=== PATIENT | male | born 1950 | race American Indian/Alaskan Native ===

== ENCOUNTER 2021-07-11 15:18 | Emergency (ER) | payer MEDICARE ==
[2021-07-11] MEDS ORDERED: ETOMIDATE 20 MG/10 ML INJ IV ONE (15:23)
[2021-07-11] MEDS ORDERED: ROCURONIUM 50 MG/5 ML INJ IV ONE (15:23)
[2021-07-11] MEDS ORDERED: LIDOCAINE PF 100 MG/5 ML (CARDIAC SYRINGE) IV ONE (15:23)
[2021-07-11] MEDS ORDERED: LIP THERAPY VASELINE TP PRN (15:51)
[2021-07-11] MEDS ORDERED: MINERAL OIL/PETROLATUM, WHITE OPHTH OINT 3.5 GM OU PRN (15:51)
[2021-07-11] MEDS ORDERED: THIAMINE 100 MG, FOLIC ACID 1 MG, MULTIPLE VITAMIN INJ, ADULT 10 ML in SODIUM CHLORIDE ... IV ONE (15:52)
--- NOTE | 2021-07-11 15:53 | Emergency Department Report ---
ED Altered Mental Status HPI - General Stated Complaint: AMS Time Seen by Provider: 07/11/21 15:32 Source: family, EMS, old records reviewed (not available) Mode of arrival: Stretcher Limitations: Altered Mental Status, Physical Limitation - History of Present Illness Initial Comments: 70-year-old male with a past medical history of CHF, hypertension, and atrial fibrillation presents to the hospital with altered mental status. History obtained from EMS who states that reported that patient has been drinking and smoking all day (unsure what substance he was smoking). He went to the bathroom and then he was later found in the hallway in front of the door visiting the home. Upon EMS arrival they report he had agonal respirations with period of 2 to 3 minutes of apnea. EMs Initially tried to intubate in the field however, he had a gag reflex therefore intubation attempts aborted. Nasopharyngeal tube was placed and patient was supported with [id number] ventilations during transport to the hospital. Patient arrives with spontaneous respirations and satting 100% with bag valve mask oxygenation. His Accu-Chek was 171 upon arrival and he received Narcan in route without improvement in mental status. Pt prepped for intubation due to dimished mental status Son clarified the history. He states that he received a call from his mother at approximately 1 PM that the patient h was found down on the kitchen floor. He was responsive at that time. She assisted him up with a he went to the bathroom. He then fell a second time and was unresponsive. Son instructed his mother to call EMS at that time. Son denies that patient is an alcoholic and typically smokes Black and milds and does not abuse drugs. He is currently taking Eliquis for atrial fibrillation - Related Data Allergies Allergy/AdvReac Type Severity Reaction Status Date / Time No Known Allergies Allergy Unverified 07/11/21 15:55 ED Review of Systems ROS: Stated complaint: AMS Other details as noted in HPI Comment: All other systems reviewed and negative ED Physical Exam - General Limitations: Altered Mental Status, Physical Limitation - Other Other exam information: General: Unresponsive Head: scalp hematoma eyes: 3mm unresponsive, equal ENT: Nasopharyngeal airway Neck: Normal appearance Chest: Clear to auscultation bilaterally CV: Tachycardic irregular rhythm Abdomen: Soft, normal bowel sounds, nondistended Extremity: Normal inspection Neuro: GCS equals 3 Psych: Unresponsive Skin: Warm to touch ED Course Vital Signs 07/11/21 07/11/21 07/11/21 15:35 16:00 16:57 Pulse Rate 135 H 136 H Blood Pressure 142/113 167/121 O2 Sat by Pulse 100 100 Oximetry 07/11/21 17:10 Pulse Rate 136 H Blood Pressure 167/121 O2 Sat by Pulse 99 Oximetry - Reevaluation(s) Reevaluation #1: 07/11/21 17:57 labs were requested stat, still awaiting results - Consultations Consultation #1: 07/11/21 15:40 case d/w Dr Quezada cardiac interventionalists on-call. No ST elevation [place] or indication for emergent Stone Layout Marker intervention at this time 07/11/21 16:40 Case discussed with on-call neurosurgeon Dr. Vargas. Requests mannitol 1 mg/kg bolus and advises to provided a reversal agent for Eliquis. 17:12 Case d/w Zeb Odell, confirms that pt is actually on Pradaxa. Informed of plan to transfer to [facility] 17:15 Case discussed with [facility] trauma attending Dr. Rodriguez. Agrees to discontinue Kcentra since patient is on Pradaxa. Recommends TXA and Praxbind is not available. Also recommends to cancel mannitol and provide hypertonic saline instead over 1 hour. 07/11/21 17:21 speaking with pharmacist. Informed to cancel mannitol and provide hypertonic saline instead. Also confirmed that we do have TXA and we do not have Praxbind available - Intubation Time Out Performed: Yes Sedative: Etomidate Mg Given: 20 (pretreated with Lidocaine 100mg) Paralytic: Rocuronium Mg Given: 100 Laryngoscope: Edgar Size: 4 Assist Device Used: fiberoptic device ET Tube Size: 7.5 Tube Secured Depth (cm): 22 Tube Secured Location: lips Tube Placement Confirmation: visualized tube passing t, equal breath sounds bilat, no breath sounds over epi, confirmation by capnometr Patient Tolerated Procedure: well, no complications Intubation Complications: none - Lab Data Result diagrams: 07/11/21 15:54 07/11/21 15:33 Lab Results 07/11/21 07/11/21 07/11/21 Range/Units 15:33 15:45 15:54 WBC 13.4 H (4.5-11.0) K/mm3 RBC 5.41 H (3.65-5.03) M/mm3 Hgb 16.1 H (11.8-15.2) gm/dl Hct 49.3 H (35.5-45.6) % MCV 91 (84-94) fl MCH 30 (28-32) pg MCHC 33 (32-34) % RDW 15.5 H (13.2-15.2) % Plt Count 178 (140-440) K/mm3 Lymph % (Auto) Agricultural Crop Farm Manager Holmes % (Auto) Agricultural Crop Farm Manager Eos % (Auto) Agricultural Crop Farm Manager Baso % (Auto) Agricultural Crop Farm Manager Lymph # (Auto) Agricultural Crop Farm Manager Holmes # (Auto) Agricultural Crop Farm Manager Eos # (Auto) Agricultural Crop Farm Manager Baso # (Auto) Agricultural Crop Farm Manager Seg Neutrophils % Agricultural Crop Farm Manager Seg Neutrophils # Agricultural Crop Farm Manager PT (12.2-14.9) Sec. INR (0.87-1.13) APTT (24.2-36.6) Sec. ABG pH 7.444 (7.350-7.450) pH Units ABG pCO2 32.2 mm Hg ABG pO2 69.0 L (80.0-90.0) mm Hg ABG HCO3 21.5 (20.0-26.0) mmol/L ABG O2 Saturation 95.5 (95.0-99.0) % ABG Base Excess -1.4 (-2.0-3.0) mmol/L ABG Hemoglobin 16.4 (14.0-18.0) gm/dl ABG Carboxyhemoglobin 1.3 (0.0-5.0) % ABG Methemoglobin 0.6 (0.0-1.5) % Oxyhemoglobin 93.7 L (95.0-99.0) % FiO2 30 % Sodium 135 L (137-145) mmol/L Potassium 4.8 (3.6-5.0) mmol/L Chloride 97.0 L (98-107) mmol/L Carbon Dioxide 18 L (22-30) mmol/L Anion Gap 25 mmol/L BUN 16 (9-20) mg/dL Creatinine 1.3 (0.8-1.3) mg/dL Estimated GFR > 60 ml/min BUN/Creatinine Ratio 12 % Glucose 174 H (75-100) mg/dL Lactic Acid (0.7-2.0) mmol/L Calcium 9.9 (8.4-10.2) mg/dL Magnesium 2.00 (1.7-2.3) mg/dL Total Bilirubin 1.30 H (0.1-1.2) mg/dL AST 53 H (5-40) units/L ALT 23 (7-56) units/L Alkaline Phosphatase 84 (35-129) units/L Ammonia (25-60) umol/L Total Creatine Kinase 122 (55-170) units/L CK-MB (CK-2) 2.0 (0.0-4.0) ng/mL CK-MB (CK-2) Rel Index 1.6 (0-4) Troponin T < 0.010 (0.00-0.029) ng/mL NT-Pro-B Natriuret Pep 2204 H (0-900) pg/mL Total Protein 7.4 (6.3-8.2) g/dL Albumin 4.5 (3.9-5) g/dL Albumin/Globulin Ratio 1.6 % TSH (0.270-4.200) mlU/mL Free T4 (0.76-1.46) ng/dL Salicylates (2.8-20.0) mg/dL Acetaminophen (10.0-30.0) ug/mL Plasma/Serum Alcohol (0-0.07) % Blood Type Antibody Screen 07/11/21 07/11/21 07/11/21 Range/Units 15:54 15:54 15:54 WBC (4.5-11.0) K/mm3 RBC (3.65-5.03) M/mm3 Hgb (11.8-15.2) gm/dl Hct (35.5-45.6) % MCV (84-94) fl MCH (28-32) pg MCHC (32-34) % RDW (13.2-15.2) % Plt Count (140-440) K/mm3 Lymph % (Auto) Holmes % (Auto) Eos % (Auto) Baso % (Auto) Lymph # (Auto) Holmes # (Auto) Eos # (Auto) Baso # (Auto) Seg Neutrophils % Seg Neutrophils # PT 16.9 H (12.2-14.9) Sec. INR 1.23 H (0.87-1.13) APTT 36.4 (24.2-36.6) Sec. ABG pH (7.350-7.450) pH Units ABG pCO2 mm Hg ABG pO2 (80.0-90.0) mm Hg ABG HCO3 (20.0-26.0) mmol/L ABG O2 Saturation (95.0-99.0) % ABG Base Excess (-2.0-3.0) mmol/L ABG Hemoglobin (14.0-18.0) gm/dl ABG Carboxyhemoglobin (0.0-5.0) % ABG Methemoglobin (0.0-1.5) % Oxyhemoglobin (95.0-99.0) % FiO2 % Sodium (137-145) mmol/L Potassium (3.6-5.0) mmol/L Chloride (98-107) mmol/L Carbon Dioxide (22-30) mmol/L Anion Gap mmol/L BUN (9-20) mg/dL Creatinine (0.8-1.3) mg/dL Estimated GFR ml/min BUN/Creatinine Ratio % Glucose (75-100) mg/dL Lactic Acid (0.7-2.0) mmol/L Calcium (8.4-10.2) mg/dL Magnesium (1.7-2.3) mg/dL Total Bilirubin (0.1-1.2) mg/dL AST (5-40) units/L ALT (7-56) units/L Alkaline Phosphatase (35-129) units/L Ammonia (25-60) umol/L Total Creatine Kinase (55-170) units/L CK-MB (CK-2) (0.0-4.0) ng/mL CK-MB (CK-2) Rel Index (0-4) Troponin T (0.00-0.029) ng/mL NT-Pro-B Natriuret Pep (0-900) pg/mL Total Protein (6.3-8.2) g/dL Albumin (3.9-5) g/dL Albumin/Globulin Ratio % TSH 7.750 H (0.270-4.200) mlU/mL Free T4 2.05 H (0.76-1.46) ng/dL Salicylates (2.8-20.0) mg/dL Acetaminophen (10.0-30.0) ug/mL Plasma/Serum Alcohol (0-0.07) % Blood Type A POSITIVE Antibody Screen Negative 07/11/21 07/11/21 07/11/21 Range/Units 17:35 17:35 17:35 WBC (4.5-11.0) K/mm3 RBC (3.65-5.03) M/mm3 Hgb (11.8-15.2) gm/dl Hct (35.5-45.6) % MCV (84-94) fl MCH (28-32) pg MCHC (32-34) % RDW (13.2-15.2) % Plt Count (140-440) K/mm3 Lymph % (Auto) Holmes % (Auto) Eos % (Auto) Baso % (Auto) Lymph # (Auto) Holmes # (Auto) Eos # (Auto) Baso # (Auto) Seg Neutrophils % Seg Neutrophils # PT (12.2-14.9) Sec. INR (0.87-1.13) APTT (24.2-36.6) Sec. ABG pH (7.350-7.450) pH Units ABG pCO2 mm Hg ABG pO2 (80.0-90.0) mm Hg ABG HCO3 (20.0-26.0) mmol/L ABG O2 Saturation (95.0-99.0) % ABG Base Excess (-2.0-3.0) mmol/L ABG Hemoglobin (14.0-18.0) gm/dl ABG Carboxyhemoglobin (0.0-5.0) % ABG Methemoglobin (0.0-1.5) % Oxyhemoglobin (95.0-99.0) % FiO2 % Sodium (137-145) mmol/L Potassium (3.6-5.0) mmol/L Chloride (98-107) mmol/L Carbon Dioxide (22-30) mmol/L Anion Gap mmol/L BUN (9-20) mg/dL Creatinine (0.8-1.3) mg/dL Estimated GFR ml/min BUN/Creatinine Ratio % Glucose (75-100) mg/dL Lactic Acid (0.7-2.0) mmol/L Calcium (8.4-10.2) mg/dL Magnesium (1.7-2.3) mg/dL Total Bilirubin (0.1-1.2) mg/dL AST (5-40) units/L ALT (7-56) units/L Alkaline Phosphatase (35-129) units/L Ammonia 41.0 (25-60) umol/L Total Creatine Kinase (55-170) units/L CK-MB (CK-2) (0.0-4.0) ng/mL CK-MB (CK-2) Rel Index (0-4) Troponin T (0.00-0.029) ng/mL NT-Pro-B Natriuret Pep (0-900) pg/mL Total Protein (6.3-8.2) g/dL Albumin (3.9-5) g/dL Albumin/Globulin Ratio % TSH (0.270-4.200) mlU/mL Free T4 (0.76-1.46) ng/dL Salicylates < 0.3 L (2.8-20.0) mg/dL Acetaminophen < 5.0 L (10.0-30.0) ug/mL Plasma/Serum Alcohol (0-0.07) % Blood Type Antibody Screen 07/11/21 07/11/21 Range/Units 17:35 Unknown WBC (4.5-11.0) K/mm3 RBC (3.65-5.03) M/mm3 Hgb (11.8-15.2) gm/dl Hct (35.5-45.6) % MCV (84-94) fl MCH (28-32) pg MCHC (32-34) % RDW (13.2-15.2) % Plt Count (140-440) K/mm3 Lymph % (Auto) Holmes % (Auto) Eos % (Auto) Baso % (Auto) Lymph # (Auto) Holmes # (Auto) Eos # (Auto) Baso # (Auto) Seg Neutrophils % Seg Neutrophils # PT (12.2-14.9) Sec. INR (0.87-1.13) APTT (24.2-36.6) Sec. ABG pH (7.350-7.450) pH Units ABG pCO2 mm Hg ABG pO2 (80.0-90.0) mm Hg ABG HCO3 (20.0-26.0) mmol/L ABG O2 Saturation (95.0-99.0) % ABG Base Excess (-2.0-3.0) mmol/L ABG Hemoglobin (14.0-18.0) gm/dl ABG Carboxyhemoglobin (0.0-5.0) % ABG Methemoglobin (0.0-1.5) % Oxyhemoglobin (95.0-99.0) % FiO2 % Sodium (137-145) mmol/L Potassium (3.6-5.0) mmol/L Chloride (98-107) mmol/L Carbon Dioxide (22-30) mmol/L Anion Gap mmol/L BUN (9-20) mg/dL Creatinine (0.8-1.3) mg/dL Estimated GFR ml/min BUN/Creatinine Ratio % Glucose (75-100) mg/dL Lactic Acid 3.40 H* (0.7-2.0) mmol/L Calcium (8.4-10.2) mg/dL Magnesium (1.7-2.3) mg/dL Total Bilirubin (0.1-1.2) mg/dL AST (5-40) units/L ALT (7-56) units/L Alkaline Phosphatase (35-129) units/L Ammonia (25-60) umol/L Total Creatine Kinase (55-170) units/L CK-MB (CK-2) (0.0-4.0) ng/mL CK-MB (CK-2) Rel Index (0-4) Troponin T (0.00-0.029) ng/mL NT-Pro-B Natriuret Pep (0-900) pg/mL Total Protein (6.3-8.2) g/dL Albumin (3.9-5) g/dL Albumin/Globulin Ratio % TSH (0.270-4.200) mlU/mL Free T4 (0.76-1.46) ng/dL Salicylates (2.8-20.0) mg/dL Acetaminophen (10.0-30.0) ug/mL Plasma/Serum Alcohol < 0.01 (0-0.07) % Blood Type Antibody Screen - EKG Data -: EKG Interpreted by Me (Atrial fibrillation) EKG shows normal: ST-T waves (No STEMI) Rate: tachycardia (133) When compared to previous EKG there are: previous EKG unavailable - Radiology Data Radiology results: report reviewed CHEST 1 VIEW 07/11/2021 2:47 PM INDICATION / CLINICAL INFORMATION: ams, post intubation. COMPARISON: None available. FINDINGS: SUPPORT DEVICES: Endotracheal tube tip is about 7.4 cm above the rosalie. HEART / MEDIASTINUM: No significant abnormality. LUNGS / PLEURA: No significant pulmonary or pleural abnormality. No pneumothorax. ADDITIONAL FINDINGS: No significant additional findings. IMPRESSION: 1. Endotracheal tube in expected position. CT head/brain wo con INDICATION / CLINICAL INFORMATION: 70 years Male; ams found down. TECHNIQUE: Routine CT head without contrast. All CT scans at this location are performed using CT dose reduction for ALARA by means of automated exposure control. COMPARISON: None. FINDINGS: BRAIN / INTRACRANIAL CONTENTS: There is extensive acute subarachnoid hemorrhage most notably within the basal cisterns including the prepontine region measuring approximately 2.2 cm in its AP dimension with notable mass effect upon the anterior susan. The hemorrhage also notable extends a within the interhemispheric and sylvian fissures bilaterally. There is also notable extension through the foramen of magnum into the visualized upper cervical thecal sac at. Hemorrhage is also seen along the anterior, inferior left frontal and temporal lobes indicative of hemorrhagic contusions. This finding is more localized within the anterior left temporal lobe measuring possibly 1.5 cm transversely. Small amount of subarachnoid hemorrhage is seen extending within the left frontal cerebral sulci. There is prominent left frontal scalp hematoma. Additionally, there is focus of hemorrhage along the underlying left frontal lobe measuring 2.1 cm transversely which may also reflect component of hemorrhagic contusion and adjacent subarachnoid hemorrhage. This finding lies adjacent to nondisplaced skull fracture though configuration would be atypical for epidural hematoma. There is milder dilatation of the lateral and third ventricles concerning for developing hydrocephalus on this single exam. There is extensive cerebral white matter disease compatible with microvascular angiopathy. 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 ORBITS: No significant abnormality of visualized orbits. SINUSES / MASTOIDS: No significant abnormality in the visualized paranasal sinuses or mastoid air cells. CRANIOCERVICAL JUNCTION: There is prominent subarachnoid hemorrhage extending along anteriorly along the craniocervical junction as noted above at. ADDITIONAL FINDINGS: There is nondisplaced fracture involving the left frontal calvarium extending from the sagittal suture superiorly to the region of the mid left superior frontal sinuses. Component is also seen extending posteriorly from the superior sagittal sinus to the right paramedian lamboid suture. IMPRESSION: 1. There is extensive acute subarachnoid hemorrhage most notably along the basal cisterns with mass effect upon the brainstem as detailed above. 2. The findings are also compatible with hemorrhagic contusions involving anterior, inferior left frontal and temporal lobes. There is a prominent left frontal scalp hematoma with findings also indicative of underlying hemorrhagic contusion as described. 3. The findings are concerning for developing mild hydrocephalus on this single exam. 4. Is a nondisplaced fracture with components involving the high superior sagittal sinus as well as the left paramedian frontal and posterior paramedian right calvarium as described. The findings represent a positive clinical test result and were discovered at 3:40 PM and called to Dr. Vitale in the ER at 3:42 PM Central standard time. CT CERVICAL SPINE WITHOUT CONTRAST INDICATION / CLINICAL INFORMATION: ams found down. TECHNIQUE: Axial CT images were obtained through the cervical spine. Sagittal and coronal reformatted images were produced. All CT scans at this location are performed using CT dose reduction for ALARA by means of automated exposure control. COMPARISON: Head CT 07/11/2021 FINDINGS: Head CT demonstrated a huge subarachnoid hemorrhage. On CT cervical spine there is a large amount of blood in the prepontine and premedullary cisterns thickness of blood products in the prepontine cistern approaches 2 cm. There is associated posterior displacement of the brainstem. This hemorrhage extends down to the level of the C4-5 intervertebral disc tapering continuously from the level of the foramen magnum. The configuration of this hemorrhage is unusual for subarachnoid bleed. Possibility of a posterior fossa subdural component this patient's hemorrhage is therefore considered. POSTOPERATIVE CHANGE:None. ALIGNMENT: No significant abnormality. VERTEBRAE: No indication of fracture or bone destruction. DISC SPACES: Loss of disc height at C5-6 and C6-7 levels. INDIVIDUAL LEVEL ANALYSIS: C2-3: Bilateral facet arthropathy is noted. Central spinal canal and neuroforamina are adequately maintained. C3-4: Disc vacuum phenomenon is noted. Facet and uncovertebral arthropathy contribute to severe right-sided and moderate left-sided neuroforaminal stenosis. Central spinal canal is adequate in size. C4-5: Facet and uncovertebral arthropathy contribute to moderate bilateral foraminal stenosis. Central spinal canal is adequately maintained. C5-6: Loss of disc height is noted. Anterior and posterior osteophyte formation is observed. Facet and uncovertebral arthropathy contribute to severe bilateral foraminal stenosis at the C6 nerve root level. C6-7: Loss of disc height and anterior osteophyte formation is noted. Central spinal canal and neuroforamina remain adequate in size. C7-T1:No abnormality. CRANIOCERVICAL JUNCTION:A large amount of blood product is present in the anterior aspect of the foramen magnum extending down into the cervical spine to about the level of the C4-5 disc as described above. SPINAL CANAL: Central spinal canal is adequately maintained throughout. PARASPINAL SOFT TISSUES: Orotracheal and nasoenteric tubes are demonstrated. ADDITIONAL FINDINGS: None. LUNG APICES: No significant abnormality of visualized lungs. IMPRESSION: 1. No indication of fracture or traumatic subluxation. 2. There is enlargement of blood product along the clivus extending through the foramen magnum down to about the level of the C4-5 intervertebral disc. Along the ventral aspect of the spinal canal. Patient has massive subarachnoid hemorrhage on head CT. Based on the configuration of the hemorrhage along the clivus and in the spinal canal subdural hemorrhage is suspected in this distribution. CRITICAL RESULT: Time of Discovery (PRODUCTION WELDING SUPERVISOR/CDT): 1540, central standard time. Time of Communication (PRODUCTION WELDING SUPERVISOR/CDT): 1541. Head CT and cervical spine CT results were called by Dr. Mitchell to [facility] emergency department physician, Dr. Vitale. Licensed Practitioner Receiving Report: Dr. Vitale Read-Back Performed: Not applicable. ABDOMEN 1 VIEW 07/11/2021 INDICATION / CLINICAL INFORMATION: NGT PLACEMENT. COMPARISON: None available. FINDINGS: TUBES / LINES: Nasogastric tube is noted within the right mainstem bronchus. BOWEL GAS PATTERN: No significant abnormality. FREE AIR / EXTRALUMINAL GAS: None seen. ADDITIONAL FINDINGS: There is a left pleural effusion/basilar opacity. IMPRESSION: 1. Nasogastric tube is noted within the right mainstem bronchus. Notes from Tanya Verma indicates that the nurse removed the NG tube and the patient is currently being life flighted. - Medical Decision Making 70-year-old male with chronic A. fib currently on Pradaxa (confirmed by [facility]) presents to the hospital alteration mental status status post multiple falls today. Intubated upon arrival using neuro intubation meds including lidocaine, etomidate, and rocuronium. ED work-up reveals A. fib with RVR with signs of traumatic head injury and significant hemorrhage requiring emergent transfer to a trauma center. Pt is taking Pradaxa for afib with last dose unknown. After consultation with trauma attending hypertonic saline (3% 250ml over 1 hr) and TXA have been ordered. Patient is intubated on propofol drip for sedation and Cardizem drip for heart rate control. NGT was removed due to misplacement. Critical Care Time: Yes Critical care time in (mins) excluding proc time.: 75 Critical care attestation.: If time is entered above; I have spent that time in minutes in the direct care of this critically ill patient, excluding procedure time. Critical Care Time: 75 Minutes of critical care time excluding procedures were used in the care of the patient. I came immediately to the bedside upon patient's arrival. I obtained history from EMS at the bedside. I discussed treatment plan with the nursing team members. I reviewed electronic record. I spoke with family to obtain medical history. Patient required multiple interventions and reassessments. Spoke to multiple specialist and coordinated transfer ED Disposition Clinical Impression: Skull fracture with cerebral contusion, SAH (subarachnoid hemorrhage), Chronic anticoagulation, Atrial fibrillation with rapid ventricular response Disposition: 02 SHORT TERM HOSPITAL Is pt being admited?: No Condition: Stable Time of Disposition: 18:45
[2021-07-11] MEDS ORDERED: dilTIAZem/D5W 100 MG/100 ML BAG IV SCH (16:00)
[2021-07-11 16:04] LABS: ABG HCO3 21.5 mmol/L (20.0-26.0); ABG PCO2 32.2 mm Hg; ABG PH 7.444 pH Units (7.350-7.450)
[2021-07-11 16:05] LABS: ABG Base Excess -1.4 mmol/L (-2.0-3.0); ABG Methemoglobin 0.6 % (0.0-1.5); ABG Oxygen Saturation 95.5 % (95.0-99.0)
[2021-07-11] MEDS ORDERED: MANNITOL 20% 500 ML IV ONE (16:44)
--- NOTE | 2021-07-11 16:48 | Cat Scan Report ---
CT head/brain wo con INDICATION / CLINICAL INFORMATION: 70 years Male; ams found down. TECHNIQUE: Routine CT head without contrast. All CT scans at this location are performed using CT dos e reduction for ALARA by means of automated exposure control. COMPARISON: None. FINDINGS: BRAIN / INTRACRANIAL CONTENTS: There is extensive acute subarachnoid hemorrhage most notably within t he basal cisterns including the prepontine region measuring approximately 2.2 cm in its AP dimension with notable mass effect upon the anterior susan. The hemorrhage also notable extends a within the int erhemispheric and sylvian fissures bilaterally. There is also notable extension through the foramen o f magnum into the visualized upper cervical thecal sac at. Hemorrhage is also seen along the anterior, inferior left frontal and temporal lobes indicative of he morrhagic contusions. This finding is more localized within the anterior left temporal lobe measuring possibly 1.5 cm transversely. Small amount of subarachnoid hemorrhage is seen extending within the l eft frontal cerebral sulci. There is prominent left frontal scalp hematoma. Additionally, there is focus of hemorrhage along the underlying left frontal lobe measuring 2.1 cm transversely which may also reflect component of hemorr hagic contusion and adjacent subarachnoid hemorrhage. This finding lies adjacent to nondisplaced skul l fracture though configuration would be atypical for epidural hematoma. There is milder dilatation of the lateral and third ventricles concerning for developing hydrocephalu s on this single exam. There is extensive cerebral white matter disease compatible with microvascular angiopathy. 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 ORBITS: No significant abnormality of visualized orbits. SINUSES / MASTOIDS: No significant abnormality in the visualized paranasal sinuses or mastoid air matthew ls. CRANIOCERVICAL JUNCTION: There is prominent subarachnoid hemorrhage extending along anteriorly along the craniocervical junction as noted above at. ADDITIONAL FINDINGS: There is nondisplaced fracture involving the left frontal calvarium extending fr om the sagittal suture superiorly to the region of the mid left superior frontal sinuses. Component i s also seen extending posteriorly from the superior sagittal sinus to the right paramedian lamboid clifford ture. IMPRESSION: 1. There is extensive acute subarachnoid hemorrhage most notably along the basal cisterns with mass e ffect upon the brainstem as detailed above. 2. The findings are also compatible with hemorrhagic contusions involving anterior, inferior left fro ntal and temporal lobes. There is a prominent left frontal scalp hematoma with findings also indicati ve of underlying hemorrhagic contusion as described. 3. The findings are concerning for developing mild hydrocephalus on this single exam. 4. Is a nondisplaced fracture with components involving the high superior sagittal sinus as well as t he left paramedian frontal and posterior paramedian right calvarium as described. The findings represent a positive clinical test result and were discovered at 3:40 PM and called to Catherine Vitale in the ER at 3:42 PM Central standard time. Signer Name: Bayron Mitchell MD Signed: 07/11/2021 4:44 PM Workstation Name: [id number]
[2021-07-11 16:52] LABS: Free T4 (Free Thyroxine) 2.05 ng/dL (0.76-1.46)
[2021-07-11] MEDS ORDERED: PROTHROMBIN COMPLEX HUMAN IV ONE (16:53)
--- NOTE | 2021-07-11 16:57 | Cat Scan Report ---
CT CERVICAL SPINE WITHOUT CONTRAST INDICATION / CLINICAL INFORMATION: ams found down. TECHNIQUE: Axial CT images were obtained through the cervical spine. Sagittal and coronal reformatted images wer e produced. All CT scans at this location are performed using CT dose reduction for ALARA by means of automated exposure control. COMPARISON: Head CT 07/11/2021 FINDINGS: Head CT demonstrated a huge subarachnoid hemorrhage. On CT cervical spine there is a large amount of blood in the prepontine and premedullary cisterns thickness of blood products in the prepontine ciste rn approaches 2 cm. There is associated posterior displacement of the brainstem. This hemorrhage exte nds down to the level of the C4-5 intervertebral disc tapering continuously from the level of the for amen magnum. The configuration of this hemorrhage is unusual for subarachnoid bleed. Possibility of a posterior fossa subdural component this patient's hemorrhage is therefore considered. POSTOPERATIVE CHANGE:None. ALIGNMENT: No significant abnormality. VERTEBRAE: No indication of fracture or bone destruction. DISC SPACES: Loss of disc height at C5-6 and C6-7 levels. INDIVIDUAL LEVEL ANALYSIS: C2-3: Bilateral facet arthropathy is noted. Central spinal canal and neuroforamina are adequately iona ntained. C3-4: Disc vacuum phenomenon is noted. Facet and uncovertebral arthropathy contribute to severe right -sided and moderate left-sided neuroforaminal stenosis. Central spinal canal is adequate in size. C4-5: Facet and uncovertebral arthropathy contribute to moderate bilateral foraminal stenosis. Centra l spinal canal is adequately maintained. C5-6: Loss of disc height is noted. Anterior and posterior osteophyte formation is observed. Facet an d uncovertebral arthropathy contribute to severe bilateral foraminal stenosis at the C6 nerve root le anne marie. C6-7: Loss of disc height and anterior osteophyte formation is noted. Central spinal canal and neurof oramina remain adequate in size. C7-T1:No abnormality. CRANIOCERVICAL JUNCTION:A large amount of blood product is present in the anterior aspect of the fora men magnum extending down into the cervical spine to about the level of the C4-5 disc as described ab ove. SPINAL CANAL: Central spinal canal is adequately maintained throughout. PARASPINAL SOFT TISSUES: Orotracheal and nasoenteric tubes are demonstrated. ADDITIONAL FINDINGS: None. LUNG APICES: No significant abnormality of visualized lungs. IMPRESSION: 1. No indication of fracture or traumatic subluxation. 2. There is enlargement of blood product along the clivus extending through the foramen magnum down t o about the level of the C4-5 intervertebral disc. Along the ventral aspect of the spinal canal. Tatyana ent has massive subarachnoid hemorrhage on head CT. Based on the configuration of the hemorrhage pablo g the clivus and in the spinal canal subdural hemorrhage is suspected in this distribution. CRITICAL RESULT: Time of Discovery (AUTOMATIC PROFILE SANDER OPERATOR/CDT): 1540, central standard time. Time of Communication (AUTOMATIC PROFILE SANDER OPERATOR/CDT): 1541. Head CT and cervical spine CT results were called by Dr. Mitchell to [facility] emergency department physician, Dr. Vitale. Licensed Practitioner Receiving Report: Dr. Vitale Read-Back Performed: Not applicable. Signer Name: Titi Guadarrama MD Signed: 07/11/2021 4:53 PM Workstation Name: [id number]
[2021-07-11 16:58] LABS: Hematocrit 49.3 % (35.5-45.6); Hemoglobin 16.1 gm/dl (11.8-15.2); Mean Corpuscular HGB Conc 33 % (32-34); Mean Corpuscular Volume 91 fl (84-94); Platelet Count 178 K/mm3 (140-440); Red Blood Count 5.41 M/mm3 (3.65-5.03); Red Cell Distribution Width 15.5 % (13.2-15.2)
[2021-07-11 17:00] LABS: Partial Thromboplastin Time 36.4 Sec. (24.2-36.6)
[2021-07-11] MEDS ORDERED: SODIUM CHLORIDE 3% 500 ML IV ONE ×2 (17:18→18:00)
[2021-07-11 17:36] VITALS: BP 167/121
[2021-07-11 17:49] LABS: INR 1.23 (0.87-1.13)
[2021-07-11] MEDS ORDERED: TRANEXAMIC ACID 1,000 MG in SODIUM CHLORIDE 0.9% 100 ML IV NR (18:00)
[2021-07-11 18:06] LABS: Alanine Aminotransferase 23 units/L (7-56); Albumin 4.5 g/dL (3.9-5); BUN/Creatinine Ratio 12; Blood Urea Nitrogen 16 mg/dL (9-20); Calcium 9.9 mg/dL (8.4-10.2); Hemolysis Index 106
--- NOTE | 2021-07-11 18:30 | XRay Report ---
ABDOMEN 1 VIEW 07/11/2021 INDICATION / CLINICAL INFORMATION: NGT PLACEMENT. COMPARISON: None available. FINDINGS: TUBES / LINES: Nasogastric tube is noted within the right mainstem bronchus. BOWEL GAS PATTERN: No significant abnormality. FREE AIR / EXTRALUMINAL GAS: None seen. ADDITIONAL FINDINGS: There is a left pleural effusion/basilar opacity. IMPRESSION: 1. Nasogastric tube is noted within the right mainstem bronchus. Notes from Tanya Verma indicates that the nurse removed the NG tube and the patient is current ly being life flighted. Signer Name: David Singh DO Signed: 07/11/2021 6:25 PM Workstation Name: [id number]
[2021-07-11] MEDS ORDERED: FAMOTIDINE 20 MG/2 ML INJ IV SCH (22:00)
[2021-07-11] MEDS ORDERED: SENNOSIDES/DOCUSATE SODIUM 8.6/50 MG TAB FEEDTUBE SCH (22:00)
--- NOTE | 2021-07-12 12:24 | Electrocardiograph Report ---
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
--- NOTE | 2021-07-12 12:25 | Electrocardiograph Report ---
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 Electronically Signed On 07-12-2021 12:24:42 EDT by Baldemar Gomez
== END 2021-07-11 20:25 | disposition short-term general hospital (02) ==
LOC: ED 15:18
DX: S02.91XA Unspecified fracture of skull, initial encounter for closed fracture (principal); S06.2X9A Diffuse traumatic brain injury with loss of consciousness of unspecified duration, initial encounter; I48.20 Chronic atrial fibrillation, unspecified; I11.0 Hypertensive heart disease with heart failure; I50.9 Heart failure, unspecified; F17.200 Nicotine dependence, unspecified, uncomplicated; Z79.899 Other long term (current) drug therapy; Z72.89 Other problems related to lifestyle; W18.39XA Other fall on same level, initial encounter; Y93.89 Activity, other specified; Y92.89 Other specified places as the place of occurrence of the external cause; Y99.8 Other external cause status
CPT/HCPCS: 31500; 36415; 70450; 71045; 72125; 74018; 80053; 82140; 82550; 82553; 82803; 83735; 83880; 84439; 84443; 84484; 85025; 85610; 85730; 86850; 86900; 86901; 87070; 87205; 93005; 96365; 96366; 96367; 96368; 99291; 99292; J2001; J2150; J2704; J3411; J3490; J7030; J7195; 80320; 94002; G0480